=== PATIENT | female | born 1995 | race Hispanic/Latino ===

== ENCOUNTER 2018-04-17 13:07 | Emergency (ER) | payer OTHER ==
[2018-04-17] MEDS ORDERED: Bacitracin Zinc 1 Packet ONE (13:24)
== END 2018-04-17 14:10 | disposition home or self-care (01) ==
LOC: SCSER 13:07
DX: S61.213D Laceration without foreign body of left middle finger without damage to nail, subsequent encounter (principal); F31.9 Bipolar disorder, unspecified; F41.9 Anxiety disorder, unspecified; W25.XXXD Contact with sharp glass, subsequent encounter

== ENCOUNTER 2018-12-11 10:53 | Outpatient (CLI) | payer OTHER, MEDICAID ==
--- NOTE | 2018-12-11 13:52 | ULT ---
OB ULTRASOUND: HISTORY: anatomy. FINDINGS: A single live intrauterine gestation is seen with measurements corresponding to an estimated gestatio nal age of 18 weeks 5 days and estimated date of delivery at 05/09/2019. The estimated weight m easures 243 gm or 9 ounces. This corresponds to the 33rd percentile by Hadlock criteria. Biometry: BPD 4.31 cm, 19 weeks 0 days HC 16.22 cm, 19 weeks 0 days AC 12.98 cm, 18 weeks 4 days FL 2.73 cm, 18 weeks 2 days The heart rate measures 143 b.p.m. The amniotic fluid is adequate. The placenta is posteriorl y located without evidence of placenta previa. A 3-vessel cord, cord insertion, kidneys, bladder, stomach, 4-chamber heart, lateral ventricles , cerebellum, spine, lips/nose, upper and lower extremities are visualized. No definite anomal ies are seen. IMPRESSION: Single live intrauterine of 18 weeks 4 days estimated gestational age and estimated date of delivery at 05/10/2019. POS: ARAMIS
== END 2018-12-11 10:54 | disposition home or self-care (01) ==
LOC: SCSULT 10:53
PROVIDERS: ATTEND Family Medicine
DX: Z34.01 Encounter for supervision of normal first pregnancy, first trimester (principal); Z3A.18 18 weeks gestation of pregnancy
CPT/HCPCS: 76805

== ENCOUNTER 2019-03-06 09:46 | Outpatient (CLI) | payer OTHER | END 2019-03-06 09:47 | disposition home or self-care (01) | LOC: DTY/OP 09:46 | PROVIDERS: ATTEND Family Medicine | DX: O24.419 Gestational diabetes mellitus in pregnancy, unspecified control (principal) | CPT/HCPCS: 97802 ==

== ENCOUNTER 2019-04-02 00:03 | Observation (INO) | payer OTHER ==
[2019-04-02 00:55] LABS: ALT (SGPT) 17 U/L (8-55); AST (SGOT) 20 U/L (5-34); Alkaline Phosphatase 229 U/L (40-150); Anion Gap 16 mmol/L (10-20); BUN (Urea Nitrogen) 16 mg/dL (7.0-18.7); Bilirubin, Total 0.2 mg/dL (0.2-1.2); Calc. Creatinine Clearance 0 mL/min (70-130); Calcium 8.6 mg/dL (7.8-10.44); Carbon Dioxide 17 mmol/L (22-29); Chloride 109 mmol/L (98-107); Estimated GFR-MDRD Greater than 90; Globulin 3.1 g/dL (2.4-3.5); Glucose 91 mg/dL (70-105); Potassium 3.7 mmol/L (3.5-5.1); Protein, Total 6.1 g/dL (6.0-8.3); Sodium 138 mmol/L (136-145)
[2019-04-02 01:19] LABS: #Basophils 0.1 thou/uL (0.0-0.2); #Eosinphils 0.1 thou/uL (0.0-0.7); #Lymphocytes 1.6 thou/uL (1.20-3.40); #Monocytes 0.7 thou/uL (0.11-0.59); #Neutrophils 6.2 thou/uL (1.40-6.50); %Basophils 0.8 % (0.0-1.0); %Eosinophils 0.8 % (0.0-10.0); %Lymphocytes 18.9 % (21.0-51.0); %Monocytes 8.2 % (0.0-10.0); %Neutrophils 71.3 % (42.0-75.0); Hemoglobin 12.1 g/dL (12.0-16.0); Mean Corpuscular HGB CONC 35.2 g/dL (32.0-36.0); Mean Corpuscular Hemoglobin 34.6 pg (27.0-31.0); Mean Corpuscular Volume 98.3 fL (78.0-98.0); Mean Platelet Volume 8.9 fL (7.4-10.4); Platelet Count 189 thou/uL (130-400); White Blood Cell (WBC) Count 8.7 thou/uL (4.8-10.8)
[2019-04-02 01:27] VITALS: BMI 21.9
[2019-04-02 01:32] LABS: Platelet Morphology Comment Appears Adequate; RBC Morphology Normal
[2019-04-02] MEDS ORDERED: Lactated Ringer's 1,000 ML IV SCH ×2 (02:30)
[2019-04-02] MEDS: Betamet Acet/Betamet Na Ph 30 MG/5 ML VIAL IM SCH (02:39)
--- NOTE | 2019-04-02 03:21 | HP ---
PRIMARY OB: Erika Rodrigues MD CHIEF COMPLAINT: Vaginal bleeding. HISTORY OF PRESENT ILLNESS: The patient is a 23-year-old G1, P0 female with an intrauterine at 34 weeks and 4 days, presenting to an outside emergency room with concerns of vaginal bleeding after having intercourse. The patient reports that during intercourse, she began having bleeding running down her leg and it continued and so went to the emergency room for evaluation. There in the evaluation, the patient was seen and was transferred here to Labor and Delivery for further evaluation. Here, the patient again reports that she has had vaginal bleeding dripping down her leg and when she arrived to the ER, she still had some bleeding but seems to have since stopped. The patient reports she can feel contractions, but they are not painful. She just knows that they are occurring. She denies any recent discharge or change in vaginal odor. She denies any knowledge of abnormal placental placement. She has had no complications with this except for diet-controlled gestational diabetes. The patient denies any recent illness, fever, fall, headache, chest pain, shortness of breath, nausea, vomiting, diarrhea, constipation, hip problems, knee problems, muscle weakness, urinary urgency or frequency. PAST MEDICAL HISTORY: Gestational diabetes, diet controlled. PAST SURGICAL HISTORY: Negative. PSYCHIATRIC HISTORY: Anxiety and bipolar disorder with psychiatric admission in 2015. SOCIAL HISTORY: Denies drug, alcohol, or tobacco use. ALLERGIES: NO KNOWN DRUG ALLERGIES. MEDICATIONS: vitamins. OB LABS: Unavailable at the time of dictation. REVIEW OF SYSTEMS: Per HPI. PHYSICAL EXAMINATION: VITAL SIGNS: Blood pressure 104/62, heart rate of 74, respiratory rate 18, saturating 97% on room air, temperature 97.8. GENERAL: She appears to be in no acute distress. She is alert and oriented, cooperative, and pleasant to interact with. HEAD: Normocephalic, atraumatic. LUNGS: Clear to auscultation bilaterally. HEART: Regular rate and rhythm. ABDOMEN: Gravid, soft, nontender. EXTREMITIES: Nontender, nonedematous. : She has blood stain on her inner thighs and on her vulva. With inspection of the vestibular region, there is no lesions visible around the urethra or interlabial area or the introitus. On speculum exam, the patient is noted to have about 10-20 mL of dark blood. On inspection of the cervix, the patient does have a very small amount of active bleeding that appears to be coming from the cervix itself and not from the uterus. On digital exam, cervix is very soft. It is 1+ cm dilated, about 50% effaced with head present and palpable at about -1 station. heart tracing shows the fetus with a baseline in the 130s with moderate long-term variability, positive 15 x 15 accelerations, no decelerations. Tocometer showing contractions about every 2 to 5 minutes. Again, not painful, but felt by the patient. Fetus has a category 1 tracing and reactive NST. ASSESSMENT AND PLAN: The patient is a 23-year-old female, who presented after intercourse with vaginal bleeding. She is having more bleeding than I would expect, though this does appear to be explained by a small area of the cervix that is bleeding. Cervix is unusually soft and is surprisingly dilated at this point in her . Given the findings and the contractions, I have opted to keep the patient here for observation and steroid administration. There is no evidence of labor at this point, though she is having contractions. Fetus is vertex. We will be obtaining ultrasound for placental location and weight. Her primary OB doctor, Erika Rodrigues, will be notified in the morning of her admission. Job ID: [id number]
--- NOTE | 2019-04-02 07:21 | ULT ---
LIMITED OB ULTRASOUND: Date: 04/02/19 INDICATION: [id number] with new onset vaginal bleeding. FINDINGS: Limited obstetrical ultrasound requested to evaluate weight, placenta, and cervical length. The re is a live intrauterine gestation demonstrated in a vertex lie. Placenta is primarily located left lateral without evidence of previa visualized. Cervical length is approximately 3 cm. CHARISSE measures 9. 2 cm. cardiac activity is documented at 131 beats/minute. On the basis of sonographic imaging, the estimated gestational age is 34 weeks/2 days, with estimated date of delivery therefore at . Estimated weight is 2383 gm. IMPRESSION: Live intrauterine gestation, as above. As necessary, continued imaging follow-up may be obtained. POS: CHRIS
--- NOTE | 2019-04-02 08:50 | PRG ---
DATE OF SERVICE: 04/02/2019 SUBJECTIVE: Ms. Gilliam is a 23-year-old with an intrauterine at 34 weeks and 4 days, who presented from an outside emergency room with vaginal bleeding after intercourse. The patient was noted on her exam to have dilated cervix of 1 to 2 cm, 50% effaced with some minimal bleeding and was kept overnight for steroids. The patient denies this morning any contractions, abdominal pain, or persistent bleeding. OBJECTIVE: VITAL SIGNS: Blood pressure is 104/62, heart rate of 74, respiratory rate of 18, saturating 97% on room air, and temperature 97.8. GENERAL: She appears to be in no acute distress. She is alert and oriented, cooperative and pleasant to interact with. HEENT: Head is normocephalic, atraumatic. ABDOMEN: Gravid, soft, and nontender. EXTREMITIES: Nontender. Nonedematous. heart tracing shows a baseline in the 130s with moderate long-term variability, positive 15 x 15 accelerations, no decelerations. The patient has not had her NST this morning and do not have documentation on tocometer. ASSESSMENT AND PLAN: The patient is a 23-year-old female, admitted for steroid administration. Symptoms are not progressing and appeared to be resolving. We will anticipate discharge later today with her second dose. Job ID: [id number]
[2019-04-02] MEDS ORDERED: hydrALAZINE 20 MG/ML VIAL SLOW IVP PRN (13:10)
[2019-04-02] MEDS ORDERED: Bisacodyl 10 MG SUPP PR PRN (13:10)
[2019-04-02] MEDS ORDERED: Zolpidem Tartrate 5 MG TAB PO PRN (13:10)
[2019-04-02] MEDS: Ferrous Sulfate 325 MG TAB PO SCH (18:11)
[2019-04-02] MEDS: Docusate Calcium (SURFAK) 240 MG CAP PO SCH (23:00)
[2019-04-03] MEDS: Betamet Acet/Betamet Na Ph 30 MG/5 ML VIAL IM SCH (02:30)
--- NOTE | 2019-04-03 07:47 | DIS ---
DATE OF ADMISSION: 04/02/2019 DATE OF DISCHARGE: 04/03/2019 HISTORY: Ms. Ozuna is a 23-year-old, 34 weeks and 5 days, who presented from outside ED with vaginal bleeding after intercourse. Cervix was 1 to 2, 50% with minimal bleeding and was kept for administration of corticosteroids for concerns for possible labor. She is resting comfortably. Reports no pain, no bleeding and has no further complaints. PHYSICAL EXAMINATION: VITAL SIGNS: Temperature is 98.2, pulse 71, respirations 18, and blood pressure 101/56. HEENT: Within normal limits. LUNGS: Clear to auscultation bilaterally. HEART: Regular rhythm. ABDOMEN: Soft and nontender. No rebound or guarding. She has no blood noted on the perineum. FHTs are 150s. IMPRESSION: A 34 weeks' gestation, status post betamethasone x2 doses. No evidence of progression of possible labor. PLAN: Discharge home. Keep scheduled followup with Dr. Rodrigues. Job ID: [id number]
[2019-04-03 08:41] VITALS: BP 98/58; TEMP 97.8
[2019-04-03] MEDS: Ferrous Sulfate 325 MG TAB PO SCH (09:26)
[2019-04-03] MEDS: Docusate Calcium (SURFAK) 240 MG CAP PO SCH (09:26)
== END 2019-04-03 09:40 | disposition home health service (06) ==
LOC: SCSER 00:03 → 3SW 00:46 → L&D/OP 00:56 → L&D 06:41 → 3SW 13:25
PROVIDERS: ADMIT Obstetrics & Gynecology; ATTEND Obstetrics & Gynecology
DX: O46.93 Antepartum hemorrhage, unspecified, third trimester (principal); O24.410 Gestational diabetes mellitus in pregnancy, diet controlled; Z3A.34 34 weeks gestation of pregnancy
CPT/HCPCS: 59025; 76815; 80053; 85025; 86900; 86901; 87077; 87081; 87480; 87510; 87660; 96360; 96361; 96372; 99285; G0378; J0702

== ENCOUNTER 2019-04-24 13:55 | Inpatient (IN) | payer OTHER ==
[2019-04-24] MEDS ORDERED: HYDROcodone/Acetaminophen 5/325 mg Tablet PO PRN ×2 (14:40)
[2019-04-24] MEDS ORDERED: NS / Oxytocin 40 units/1000ml 1,000 ML IV PRN (14:40)
[2019-04-24] MEDS ORDERED: hydrALAZINE 20 MG/ML VIAL SLOW IVP PRN (14:40)
[2019-04-24] MEDS ORDERED: Ondansetron PF 4 MG/2 ML Vial IVP PRN (14:40)
[2019-04-24] MEDS ORDERED: Ibuprofen 800 MG TAB PO PRN (14:40)
[2019-04-24] MEDS ORDERED: Promethazine HCl 25 MG/ML VIAL IM PRN (14:40)
[2019-04-24] MEDS ORDERED: Lidocaine 1% (PF) 30 ML VIAL SC PRN (14:40)
[2019-04-24] MEDS ORDERED: Carboprost 250 MCG/ML AMP IM PRN (14:40)
[2019-04-24] MEDS ORDERED: Acetaminophen 500 MG TAB PO PRN (14:40)
[2019-04-24] MEDS ORDERED: Diphenoxylate HCl/Atropine Tablet PO PRN ×2 (14:40)
[2019-04-24] MEDS ORDERED: Misoprostol 200 MCG TAB PR PRN (14:40)
[2019-04-24] MEDS ORDERED: Methylergonovine 0.2 MG/ML VIAL IM PRN (14:40)
[2019-04-24] MEDS ORDERED: Penicillin G Potassium 5 MILL.UNITS in Sodium Chloride 0.9% 100 ML IVPB SCH (14:45)
[2019-04-24] MEDS: Lactated Ringer's 1,000 ML IV SCH ×2 (15:10→19:26)
[2019-04-24 15:17] LABS: Hemoglobin 12.9 g/dL (12.0-16.0); Mean Corpuscular HGB CONC 35.1 g/dL (32.0-36.0); Mean Corpuscular Hemoglobin 35.1 pg (27.0-31.0); Mean Corpuscular Volume 99.8 fL (78.0-98.0); Mean Platelet Volume 9.3 fL (7.4-10.4); Platelet Count 171 thou/uL (130-400); RBC Distribution Width 11.2 % (11.5-14.5); Red Blood Cell (RBC) Count 3.69 mill/uL (4.20-5.40); White Blood Cell (WBC) Count 7.7 thou/uL (4.8-10.8)
[2019-04-24 15:59] LABS: Syphilis Antibody Nonreactive (Nonreactive); Syphilis Antibody Index 0.03 S/CO (<1.00 Non-Reactive)
[2019-04-24 16:07] LABS: HBSAg Index 0.18 S/CO (0-0.99); Hep B Surf Ag Non-Reactive S/CO (NonReactive)
[2019-04-24] MEDS: Butorphanol Tartrate 1 MG/ML VIAL SLOW IVP PRN ×2 (17:40→22:03)
[2019-04-24 18:03] VITALS: BMI 25.7
[2019-04-24] MEDS: Penicillin G 2.5 MILL.units 2.5 MILL.UNITS in Premix Bag 1 BAG IVPB SCH ×3 (19:26→23:47)
[2019-04-25] MEDS: Butorphanol Tartrate 1 MG/ML VIAL SLOW IVP PRN ×2 (00:33→02:24)
[2019-04-25] MEDS: Penicillin G 2.5 MILL.units 2.5 MILL.UNITS in Premix Bag 1 BAG IVPB SCH (03:31)
[2019-04-25] MEDS ORDERED: Benzocaine-Menthol 82.5 ML CAN TOP PRN (08:11)
[2019-04-25] MEDS ORDERED: NS / Oxytocin 40 units/1000ml 1,000 ML IV SCH (08:11)
[2019-04-25] MEDS ORDERED: Lanolin Ointment 7 GM TUBE TOP PRN (08:11)
[2019-04-25] MEDS ORDERED: Milk Of Magnesia 30 ML UDCUP PO PRN (08:11)
[2019-04-25] MEDS ORDERED: Acetaminophen/Codeine 30-300mg Tablet PO PRN (08:11)
[2019-04-25] MEDS ORDERED: Preparation H Ointment 28 GM TUBE PR PRN (08:11)
[2019-04-25] MEDS ORDERED: HYDROcodone/Acetaminophen 5/325 mg Tablet PO PRN (08:11)
[2019-04-25] MEDS ORDERED: hydrALAZINE 20 MG/ML VIAL SLOW IVP PRN (08:11)
[2019-04-25] MEDS ORDERED: Ondansetron PF 4 MG/2 ML Vial IVP PRN (08:11)
[2019-04-25] MEDS ORDERED: diphenhydrAMINE 25 MG CAP PO PRN (08:11)
[2019-04-25] MEDS ORDERED: Bisacodyl 10 MG SUPP PR PRN (08:11)
[2019-04-25] MEDS: Ibuprofen 800 MG TAB PO SCH ×3 (10:43→21:17)
[2019-04-25] MEDS: Docusate Calcium (SURFAK) 240 MG CAP PO SCH ×2 (10:43→21:17)
[2019-04-25] MEDS: Prenatal Vitamin 1 TAB PO SCH (10:43)
[2019-04-26] MEDS: Ibuprofen 800 MG TAB PO SCH ×2 (05:43→14:02)
[2019-04-26 08:18] VITALS: BP 105/66; TEMP 98
[2019-04-26] MEDS: Docusate Calcium (SURFAK) 240 MG CAP PO SCH (08:35)
[2019-04-26] MEDS: Prenatal Vitamin 1 TAB PO SCH (08:35)
== END 2019-04-26 15:30 | disposition home or self-care (01) | DRG 807 ==
LOC: L&D/OP 13:55 → L&D 15:56 → 3SW 04-25 09:40
PROVIDERS: ADMIT Family Medicine; ATTEND Family Medicine
PROC: 10E0XZZ Delivery of Products of Conception, External Approach (ICD-10-PCS; principal; 2019-04-25)
PROC: 10907ZC Drainage of Amniotic Fluid, Therapeutic from Products of Conception, Via Natural or Artificial Opening (ICD-10-PCS; 2019-04-25)
DX: O24.420 Gestational diabetes mellitus in childbirth, diet controlled (principal); Z37.0 Single live birth; Z3A.39 39 weeks gestation of pregnancy
CPT/HCPCS: 36415; 85027; 86780; 86850; 86900; 86901; 87340; J0595; J2001; J2540; J3490

== ENCOUNTER 2025-02-13 16:22 | Emergency (ER) | payer OTHER ==
[2025-02-13] MEDS ORDERED: Dicyclomine 20 MG TAB ONE (17:45)
[2025-02-13 18:09] LABS: #Basophils Less than 0.03 10x3/uL (0.0-0.2); #Eosinophils 0.05 10x3/uL (0.0-0.7); #Monocytes 0.48 10x3/uL (0.11-0.59); #Neutrophils 2.38 10x3/uL (1.40-6.50); %Basophils 0.5 % (0.0-1.0); %Eosinophils 1.2 % (0.0-10.0); %Lymphocytes 29.7 % (21.0-51.0); %Monocytes 11.5 % (0.0-10.0); %Neutrophils 56.9 % (42.0-75.0); Hematocrit 35.4 % (36.0-47.0); Hemoglobin 12.5 g/dL (12.0-16.0); Mean Corpuscular Hemoglobin 33.3 pg (27.0-31.0); Mean Corpuscular Volume 94.4 fL (78.0-98.0); Platelet Count 184 10x3/uL (130-400); Red Blood Cell (RBC) Count 3.75 mill/uL (4.20-5.40); White Blood Cell (WBC) Count 4.18 10x3/uL (4.8-10.8)
[2025-02-13 18:24] LABS: BHCG - Serum Negative (NEGATIVE); Pregs Control Background? CLEAR/WHITE (CLR/WHITE); Pregs Control Bar Appear? YES (CONTROL BAR)
[2025-02-13 18:28] LABS: ALT (SGPT) 13 U/L (Less than 34); AST (SGOT) 17 U/L (11-34); Albumin 4.6 g/dL (3.1-4.5); Alkaline Phosphatase 66 U/L (40-110); Anion Gap 13 mmol/L (10-20); BUN (Urea Nitrogen) 14 mg/dL (7.0-18.7); Bilirubin, Total 0.4 mg/dL (0.3-1.2); Calc. Creatinine Clearance 0 mL/min (70-130); Calcium 9.2 mg/dL (7.8-10.44); Carbon Dioxide 24 mmol/L (22-29); Chloride 106 mmol/L (98-107); Globulin 2.9 g/dL (2.4-3.5); Glucose 85 mg/dL (70-105); Lipase 28 U/L (8-78); Potassium 3.8 mmol/L (3.5-5.1); Sodium 139 mmol/L (136-145)
== END 2025-02-13 19:02 | disposition home or self-care (01) ==
LOC: ERS 16:22
DX: A05.9 Bacterial foodborne intoxication, unspecified (principal); R10.84 Generalized abdominal pain; R11.0 Nausea
CPT/HCPCS: 80053; 83690; 84703; 85025; 96360